=== PATIENT | female | born 1985 | race Caucasian/White ===

== ENCOUNTER 2022-09-06 08:11 | Outpatient (REF) | payer BC, SELFPAY ==
[2022-09-06 08:30] LABS: MANUAL DIFF FLAG NO
[2022-09-06 09:18] LABS: Basophils Absolute Auto 0.1 X10*3/uL (0.0-0.2); Basophils Percent Auto 0.8 % (0-2); Eosinophils Absolute Auto 0.3 X10*3/uL (0.0-0.4); Eosinophils Percent Auto 4.4 % (0-4); Hemoglobin 13.1 g/dl (12.0-16.0); Imm Gran Abs Auto 0.01 X10*3/uL (0.00-0.03); Imm Gran Pct Auto 0.2 % (0.0-0.4); Lymphocytes Absolute Auto 1.8 X10*3/uL (1.2-4.9); Lymphocytes Percent Auto 27.6 % (20-40); Mean Corpuscular HGB Conc 33.6 g/dl (31.0-35.0); Mean Corpuscular Hemoglobin 30.1 pg (27.0-33.0); Mean Corpuscular Volume 89.7 fL (80.0-98.0); Mean Platelet Volume 10.5 fL (9.4-12.3); Monocytes Absolute Auto 0.6 X10*3/uL (0.1-1.2); Monocytes Percent Auto 8.3 % (2-11); Neutrophils Absolute Auto 3.9 x10*3/uL (2.0-8.3); Neutrophils Percent Auto 58.7 % (45-73); Platelet Count 247 X10*3/uL (160-400); Red Blood Count 4.35 X10*6/uL (4.20-5.50); Red Cell Distribution Width 12.2 % (11.0-16.0); White Blood Count 6.6 X10*3/uL (4.8-10.8)
[2022-09-06 09:54] LABS: Alanine Aminotransferase 13 U/L (0-31); Albumin Level 4.1 g/dL (3.5-5.0); Alkaline Phosphatase 45 U/L (39-117); Anion Gap 14 (12-20); Aspartate Amino Transferase 14 U/L (5-31); Bilirubin Total 0.4 mg/dL (0.0-1.0); Blood Urea Nitrogen 12 mg/dL (9-16); Calcium 8.6 mg/dL (8.4-10.2); Carbon Dioxide 26 mmol/L (22-29); Chloride 103 mmol/L (96-108); Cholesterol 194 mg/dL; Estimated Glomerular Filt Rate > 60; Glucose Fasting 89 mg/dL (60-99); HDL Cholesterol 55 mg/dL; LDL Cholesterol Calculated 124 mg/dl; Potassium 4.1 mmol/L (3.3-5.1); Sodium 139 mmol/L (135-145); Total Protein 6.6 g/dL (6.5-8.0); Triglycerides 76 mg/dL
[2022-09-06 10:20] LABS: Thyroid Stimulating Hormone 8.58 uIU/mL (0.32-4.0); Vitamin D 25-OH Total 21.1 ng/mL (>30)
== END 2022-09-06 08:12 | disposition home or self-care (01) ==
LOC: HO.LAB 08:11
PROVIDERS: PCP Internal Medicine; Visit Provider Internal Medicine
DX: Z00.00 Encounter for general adult medical examination without abnormal findings (principal); F41.9 Anxiety disorder, unspecified; E78.00 Pure hypercholesterolemia, unspecified; E55.9 Vitamin D deficiency, unspecified
CPT/HCPCS: 36415; 80053; 80061; 82306; 84443; 85025

== ENCOUNTER 2022-11-18 10:00 | Outpatient (REF) | payer OTHER, SELFPAY ==
[2022-11-18 11:54] LABS: Free T4 (Free Thyroxine) 0.76 ng/dL (0.71-1.85); Thyroid Stimulating Hormone 5.35 uIU/mL (0.32-4.0)
== END 2022-11-18 10:01 | disposition home or self-care (01) ==
LOC: HO.LAB 10:00
PROVIDERS: PCP Internal Medicine; Visit Provider Internal Medicine
DX: E03.8 Other specified hypothyroidism (principal)
CPT/HCPCS: 36415; 84439; 84443

== ENCOUNTER 2024-04-06 08:56 | Outpatient (REF) | payer OTHER, SELFPAY ==
[2024-04-06 11:21] LABS: MANUAL DIFF FLAG NO
[2024-04-06 11:27] LABS: Basophils Absolute Auto 0.1 X10*3/uL (0.0-0.2); Basophils Percent Auto 0.9 % (0-2); Eosinophils Absolute Auto 0.3 X10*3/uL (0.0-0.4); Eosinophils Percent Auto 6.2 % (0-4); Hematocrit 40.2 % (37.0-47.0); Hemoglobin 13.5 g/dl (12.0-16.0); Imm Gran Abs Auto 0.02 X10*3/uL (0.00-0.03); Imm Gran Pct Auto 0.4 % (0.0-0.4); Lymphocytes Absolute Auto 1.7 X10*3/uL (1.2-4.9); Lymphocytes Percent Auto 32.3 % (20-40); Mean Corpuscular HGB Conc 33.6 g/dl (31.0-35.0); Mean Corpuscular Volume 89.3 fL (80.0-98.0); Mean Platelet Volume 10.6 fL (9.4-12.3); Monocytes Absolute Auto 0.5 X10*3/uL (0.1-1.2); Monocytes Percent Auto 9.4 % (2-11); Neutrophils Absolute Auto 2.7 x10*3/uL (2.0-8.3); Neutrophils Percent Auto 50.8 % (45-73); Platelet Count 247 X10*3/uL (160-400); Red Cell Distribution Width 13.1 % (11.0-16.0); White Blood Count 5.3 X10*3/uL (4.8-10.8)
[2024-04-06 12:22] LABS: Alanine Aminotransferase 14 U/L (0-31); Albumin Level 4.3 g/dL (3.5-5.0); Alkaline Phosphatase 42 U/L (39-117); Anion Gap 11 (12-20); Aspartate Amino Transferase 17 U/L (5-31); Bilirubin Total 0.4 mg/dL (0.0-1.0); Blood Urea Nitrogen 18 mg/dL (9-16); Calcium 9.3 mg/dL (8.4-10.2); Carbon Dioxide 28 mmol/L (22-29); Chloride 106 mmol/L (96-108); Cholesterol 203 mg/dL (<200); Estimated Glomerular Filt Rate > 60; Glucose Fasting 79 mg/dL (60-99); HDL Cholesterol 51 mg/dL (>40); LDL Cholesterol Calculated 137 mg/dL (<100); Potassium 3.7 mmol/L (3.3-5.1); Sodium 141 mmol/L (135-145); Total Protein 7.1 g/dL (6.5-8.0); Triglycerides 75 mg/dL (<150)
[2024-04-06 12:41] LABS: Free T4 (Free Thyroxine) 0.73 ng/dL (0.71-1.85); Thyroid Stimulating Hormone 5.28 uIU/mL (0.32-4.0); Vitamin D 25-OH Total 42.5 ng/mL (>30)
== END 2024-04-06 08:57 | disposition home or self-care (01) ==
LOC: HO.WFDLDS 08:56
PROVIDERS: Visit Provider Internal Medicine
DX: Z00.00 Encounter for general adult medical examination without abnormal findings (principal); E78.00 Pure hypercholesterolemia, unspecified; E55.9 Vitamin D deficiency, unspecified; E03.8 Other specified hypothyroidism
CPT/HCPCS: 36415; 80053; 80061; 82306; 84439; 84443; 85025

== ENCOUNTER 2024-06-01 08:53 | Outpatient (REF) | payer OTHER, SELFPAY ==
[2024-06-01 12:20] LABS: Free T4 (Free Thyroxine) 0.71 ng/dL (0.71-1.85); Thyroid Stimulating Hormone 5.03 uIU/mL (0.32-4.0)
[2024-06-04 17:18] LABS: Thyroglobulin Antibodies 10 IU/mL (< or = 1); Thyroid Peroxidase Antibodies >900 IU/mL (<9)
== END 2024-06-01 08:54 | disposition home or self-care (01) ==
LOC: HO.WFDLDS 08:53
PROVIDERS: Visit Provider Internal Medicine
DX: E03.8 Other specified hypothyroidism (principal); E78.00 Pure hypercholesterolemia, unspecified
CPT/HCPCS: 36415; 84439; 84443; 86376; 86800

== ENCOUNTER 2025-04-03 15:59 | Outpatient (AMB) | payer OTHER, SELFPAY ==
--- NOTE | 2025-04-03 16:00 | MHC.PC.OV ---
Vital Signs 04/03/25 16:04 Height 5 ft 4 in Weight 149 lb BMI 25.6 BP 109/65 Respiration 12 Pulse 66 Pulse Source Pulse Oximeter Temp 98.1 F Temp Source Temporal Artery Scan Pulse Oximetry (%) 97 Oxygen Delivery Method Room Air Intake Visit Reasons: 6 month follow up Injection Machine Operator Required: No Accompanied by: Self / Same As Patient Allergies Environmental Allergy (Mild, Uncoded 04/03/25 16:17) NOT APPLICABLE Medication List - Last Reconciled 04/03/25 by Bia Pino PA-C escitalopram oxalate 20 mg PO DAILY levothyroxine mcg PO Tobacco use date assessed: 04/03/25 Dental Screening Dental Screen Date: 04/03/25 Did you have a dental visit in the last 12 months?: Yes Did you have a dental problem in the last 6 months where you did not have access to dental care?: No Was dental information given to patient?: Patient has dentist HPI 6 month follow up HPI Details The patient is a 39-year-old female presenting for annual physical exam, to establish a new primary care provider due to Dr. 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 She denies experiencing any concerning symptoms such as dizziness, chest pain, shortness of breath, or significant weight changes. Regular annual mammograms have been conducted, with the last one occurring last year, and there is no family history of colon or breast cancer. Her previous cholesterol levels were slightly elevated, with total cholesterol at 203 mg/dL and LDL cholesterol at 137 mg/dL. She experiences palpitations associated with stress but does not have a significant cardiac history. The patient reports difficulties with concentration at work, and is concerned with possible attention deficit hyperactive disorder. Her son is also diagnosed with ADHD and is on medication. Her anxiety, treated with escitalopram, is well-controlled. 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 - Family Status: Has a son who is diagnosed with ADHD and is on medication. - No recent history of therapy or counseling, though a referral was provided for further assessment. - No specific details on exercise, nutrition, or weight management were discussed. [facility] Medical History (Updated 04/03/25 @ 16:49 by Bia Pino PA-C) Overweight with body mass index (BMI) of 26 to 26.9 in adult History of mammogram (~2023) Anxiety Establishing care with new doctor, encounter for Vitamin D deficiency Hyperlipidemia LDL goal <100 Pure hypercholesterolemia, unspecified History of thyroid cancer Annual physical exam Attention deficit Surgical History (Updated 04/03/25 @ 16:46 by Bia Pino PA-C) H/O thyroidectomy Previous section History of mandibular surgery History of ankle surgery H/O wisdom tooth extraction Family History Father BP (high blood pressure) Diabetes High cholesterol Mother Heart attack Social History Housing: House Alcohol intake: current Alcohol intake frequency: holidays/special occasions only Patient Tobacco Use Status: Former Tobacco user Tobacco use type: Cigarette service: No Current occupational status: employed Cognitive needs: No Hearing needs: No Vision needs: Yes (rx glasses) Questionnaire PHQ-9 Over the last 2 weeks, how often have you been bothered by any of the following problems? 1. Little interest or pleasure in doing things: not at all 2. Feeling down, depressed, or hopeless: not at all 3. Trouble falling or staying asleep, or sleeping too much: not at all 4. Feeling tired or having little energy: not at all 5. Poor appetite or overeating: not at all 6. Feeling bad about yourself - or that you are a failure or have let yourself or your family down: not at all 7. Trouble concentrating on things, such as reading the newspaper or watching television: not at all 8. Moving or speaking so slowly that other people could have noticed. Or the opposite - being so fidgety or restless that you have been moving around a lot more than usual: not at all 9. Thoughts that you would be better off or of hurting yourself in some way: not at all Total score: 0 Depression Screening Interpretation: Negative Depression Screening Done: Yes 75065 - PHQ-9 Billing: Yes Source: Developed by Drs. Chad Venegas, Tammi Villeda, Hussain Medina and colleagues, with an educational susan from [employer]. Thrive Questionnaire Date Thrive assessed: 04/03/25 I am a: Patient What is your living situation today?: I have a steady place to live Within the past 12 months, did the food you bought not last and you didn't have the money to get more?: Never true Within the past 12 months, did you worry whether your food would run out before you got money to buy more?: Never true Do you have trouble paying for medicines?: No Do you have trouble getting transportation to medical appointments?: No Do you have trouble paying your heating and electricity bill?: No Do you have trouble taking care of your child, family member or friend?: No Do you have trouble with day-to-day activities such as bathing, preparing meals, shopping, managing finances, etc.?: No Are you currently unemployed and looking for a job?: No Are you interested in more education?: No Please select the resources that you would like help with: None THRIVE Score: 0 AUDIT C Alcohol Use Questionnaire (AUDIT-C) 1. How often do you have a drink containing alcohol?: Monthly or less 2. How many drinks containing alcohol do you have on a typical day when you are drinking?: 1 or 2 3. How often do you have six or more drinks on one occasion?: Never Total Score: 1 Score Reviewed/Action Taken: No DEANDRE-7 AMB Questionnaire DEANDRE-7 Date DEANDRE - 7 assessed: 04/03/25 Feeling nervous, anxious, or on edge: 0 = Not at all Not being able to stop or control worryin = Not at all Worrying too much about different things: 0 = Not at all Trouble relaxin = Not at all Being so restless that it is hard to sit still: 0 = Not at all Becoming easily annoyed or irritable: 0 = Not at all Feeling afraid as if something awful might happen: 0 = Not at all Total DEANDRE-7 score (0-4 normal; 5-9 mild; 10-14 moderate; 15-21 severe): 0 Source: Developed by Drs. Chad Venegas, Tammi Villeda, Hussain Medina and colleagues, with an educational susan from [employer] DEANDRE-7 Assessment Billing DEANDRE-7 Assessment Tool: DEANDRE-7 Assessment 29616 Review of Systems Const Details: - General: Denies unintentional weight loss or gain. - Cardiovascular: Denies chest pain, palpitations reported with stress. - Respiratory: Denies shortness of breath. - Gastrointestinal: Denies abdominal pain, black or bloody stools. - Neurological: Denies dizziness; reports difficulty focusing at work. - Psychological: Reports anxiety is well-controlled with escitalopram. Physical exam (Primary Care) Vital Signs: Last Vital Signs Temp 98.1 F 04/03/25 16:04 Pulse 66 04/03/25 16:04 Resp 12 04/03/25 16:04 BP 109/65 04/03/25 16:04 Pulse Ox 97 04/03/25 16:04 Oxygen Delivery Method Room Air 04/03/25 16:04 Care Plan Goal for BP management: <140/90 at Goal BMI result Body Mass Index 25.6 BMI Assessment/Plan discussion: High BMI High, discussed plan: lifestyle, weight reduction, dietary, physical activity and alcohol moderation Tobacco/Smoking Status: Tobacco use Status Tobacco use date assessed 04/03/25 04/03/25 16:08 Patient Tobacco Use Status Former Tobacco user 04/03/25 16:08 Tobacco use type Cigarette 04/03/25 16:08 PHQ-9: PHQ-9 Score PHQ-9: Total score 0 04/03/25 16:08 Depression Screening Interpretation: Negative Thrive Assessment: Date of Thrive Assessment Date Thrive assessed 04/03/25 04/03/25 16:08 Const Other: Appearance: Alert. Oriented X3. No acute distress. Head: Normal external exam. Normocephalic. Atraumatic. Eyes: Pupils are equal, round, and reactive to light. Extraocular movements intact. Conjunctiva and sclera normal. Eyelids normal. Ears: External auditory canal normal. Tympanic membranes normal. Throat: Pharynx normal. Uvula midline. Moist mucous membranes. Neck: Normal inspection. Neck supple. Full range of motion. No adenopathy. Thyroid Normal. No meningeal signs. No neck mass noted. Cardiovascular: Normal heart rate and rhythm. Heart sound normal. Slight murmur noted. Pulses normal throughout. Respiratory: No respiratory distress. Painless inspiration. Breath sounds normal. No wheezes/rales/rhonchi noted. Chest nontender. No accessory muscle usage noted or decreased air movement noted. Abdomen: Soft and nontender. Bowel sounds normal in all 4 quadrants. No distention noted. No organomegaly noted. No visible injury noted. Back: No costovertebral angle tenderness. Full range of motion noted. Skin: Skin warm and dry. Normal skin color. Normal skin turgor. No rashes/lesions/lacerations noted. Extremities: No lower extremity edema. Extremities exhibit normal range of motion. Extremities nontender. Neuro: Oriented X 3. No motor deficit. No sensory deficit. Reflexes normal. Results Reviewed Results Reviewed: - Labs: Previous cholesterol level slightly elevated at 203 mg/dL, LDL at 137 mg/dL. - Thyroid: Levels slightly suppressed post-thyroidectomy, monitored by planishing press operator. Coding Level of Care Code New Pt Level 4 (90192) New Pt Prev Care 40-64y(12634) Diagnoses Annual physical exam Z00.00 Establishing care with new doctor, encounter for Z76.89 Hyperlipidemia LDL goal <100 E78.5 Attention deficit R41.840 Anxiety F41.9 History of thyroid cancer Z85.850 Overweight with body mass index (BMI) of 26 to 26.9 in adult E66.3; Z68.26 Additional Codes PHQ-9 - 88517 - PHQ-9 Billing: Yes ([id number]) DEANDRE-7 Assessment Billing - DEANDRE-7 Assessment Tool: DEANDRE-7 Assessment 97821 ([id number]) Assessment & Plan Assessment & Plan (1) Annual physical exam: Code(s): Z00.00 - Encounter for general adult medical examination without abnormal findings Category: Medical (2) Establishing care with new doctor, encounter for: Code(s): Z76.89 - Persons encountering health services in other specified circumstances Category: Medical (3) Hyperlipidemia LDL goal <100: Code(s): E78.5 - Hyperlipidemia, unspecified Category: Medical Plan: Previous cholesterol levels were slightly elevated. I recommended dietary and exercise modifications. The patient is to have lipid panel rechecked before the next annual visit. Condition is chronic and stable will continue to monitor. (4) Attention deficit: Code(s): R41.840 - Attention and concentration deficit Category: Medical Plan: The patient experiences difficulty focusing at work. I referred her to a specialist for further evaluation and potential treatment. (5) Anxiety: Code(s): F41.9 - Anxiety disorder, unspecified Category: Medical Plan: Anxiety is well-managed on escitalopram. The patient is advised to continue current medication and contact me if a refill is necessary. Condition is chronic and stable continue to monitor. (6) History of thyroid cancer: Comment: Status post thyroidectomy being followed by endocrinology Code(s): Z85.850 - Personal history of malignant neoplasm of thyroid Category: Medical Plan: Post-thyroidectomy monitoring is managed by the patient?s planishing press operator. Routine blood tests will be conducted for overall health maintenance. (7) Overweight with body mass index (BMI) of 26 to 26.9 in adult: Code(s): E66.3 - Overweight; Z68.26 - Body mass index [BMI] 26.0-26.9, adult Category: Medical Plan: Patient has improved diet and exercise regimen. Condition is chronic and stable continue to monitor. Plan Plan Patient was informed and verbally consented to the use of an ambient scribe for clinic note documentation during this visit. 1. Hyperlipidemia Previous cholesterol levels were slightly elevated. I recommended dietary and exercise modifications. The patient is to have lipid panel rechecked before the next annual visit. 2. Attention Deficit Hyperactivity Disorder Adhd The patient experiences difficulty focusing at work. I referred her to a specialist for further evaluation and potential treatment. 3. Generalized Anxiety Disorder Anxiety is well-managed on escitalopram. The patient is advised to continue current medication and contact me if a refill is necessary. 4. Follow-Up For Thyroid Cancer Post-thyroidectomy monitoring is managed by the patient?s planishing press operator. Routine blood tests will be conducted for overall health maintenance. I discussed with the patient the importance of managing her slightly elevated cholesterol levels through diet and exercise modifications before considering pharmacological intervention. We reviewed her history of ADHD, and I provided a referral for a specialist to assess her current difficulties with concentration and focus at work. The potential benefits and risks of ADHD medication will be evaluated by the specialist. I confirmed the continuation of escitalopram for her anxiety, which is currently well-managed. For her thyroid cancer follow-up, I acknowledged the ongoing monitoring by her planishing press operator and ensured that our routine blood work would complement her overall health maintenance. I emphasized the importance of regular follow-up and monitoring to address any changes in her health status. Orders: Orders C Reactive Protein Today Z00.00 - Encounter for general adult medical examination without abnormal findings Comprehensive [place]. Panel Fast Today Z00.00 - Encounter for general adult medical examination without abnormal findings Hemoglobin A1c Today Z00.00 - Encounter for general adult medical examination without abnormal findings Liver Panel Today Z00.00 - Encounter for general adult medical examination without abnormal findings Magnesium Today Z00.00 - Encounter for general adult medical examination without abnormal findings Vitamin B12 and Folate Today Z00.00 - Encounter for general adult medical examination without abnormal findings Vitamin D 25-OH Total Today Z00.00 - Encounter for general adult medical examination without abnormal findings Complete Blood Count Auto Diff Today Z00.00 - Encounter for general adult medical examination without abnormal findings Lipid Panel Today Z00.00 - Encounter for general adult medical examination without abnormal findings Referrals Psychiatry Outpatient Consultation Service R41.740 - Attention and concentration deficit Patient Instructions: - Follow a healthy diet and exercise regularly to help manage cholesterol levels. - Schedule and complete the required blood work before the next annual visit. - Expect a call from the ADHD specialist for further evaluation within the next two weeks. - Continue taking escitalopram as prescribed and reach out if a refill is needed. - Monitor for any new symptoms and report palpitations if they occur frequently. - Attend all follow-up appointments with your planishing press operator for thyroid management.
[2025-04-03 16:04] VITALS: BP 109/65; PULSE 66; RESP 12; TEMP 36.7; O2SAT 97; BMI 25.6
--- OUTSIDE RECORDS SUMMARY | 2025-04-03 16:14 | XMS_ITS | Continuity of Care Document ---
Author Organization [facility] [address] [place] [address] Phone [phone] Care Team Providers Care Applications Project Manager Name Role Phone Chad Murphy M.D. Care Team Information Recei neri [phone] Problems Active Problems Provider Date Anxiety Stevenson Cherry M.D. Onset: 0 07/19/2024 Hypercholesterolemia Stevenson Cherry M.D. Ons et: 07/19/2024 Vitamin D deficiency Stevenson Cherry M.D. Ons et: 07/19/2024 Hypothyroidism Stevenson Cherry M.D. Onset: 0 07/19/2024 Papillary thyroid carcinoma Mckay Tirado Onset: 12/27/2024 Social History Type Date Description Comments Sex Unknown Allergies and adverse reactions Description No Known Drug Allergies Medications Active Medications SIG Qnty Indications Ordering Provider Date Levothyroxine [id number] Tablets 1 tablet by mouth fasting every morning 11/08 on Tuesday 90tabs Stevenson Cherry M.D. 09/19/2024 Escitalopram [id number] Tablets Take 1 Tablet By Mouth Every Day Chad Murphy M.D. Vitamin [id number] (1999 Ut) Capsules Take 1 Capsule By Mouth Every Day Chad Murphy M.D. Calcitriol0.25mcg Capsules Unknown Vital Signs Date Vital Result Comment 12/27/2024 9:30am BP Systolic 90 mmHg BP Diastolic 60 mmHg Heart Rate 72 /min Height 64 inches 5'4 Weight 154.25 lb BMI (Body Mass Index) 26.5 kg/m2 Results Test Acquired Date Facility Test Result H/L Range N ote TSH Rfx on Abnormal to Free T4 03/19/2025 [facility] TSH RFX On Abnormal To Free T4 0.206 uIU/mL Low 0.450-4.500 T4,Free (Direct) 1.54 ng/dL 0.82-1.77 TSH Rfx on Abnormal to Free T4 12/25/2024 [facility] TSH Rfx on Abnormal to Free T4 0.530 uIU/mL 0.450-4.500 TSH RFX On Abnormal To Free T4 10/01/2024 [facility] TSH RFX On Abnormal To Free T4 <pending> hCG,Beta Subunit,Qual 09/18/2024 [facility] hCG,Beta Subunit,Qual Negative mIU/mL Negative <6 TSH+Free T4 09/14/2024 [facility] TSH 89.400 uIU/mL High 0.450-4.500 T4,Free(Direc t) 0.10 ng/dL Low 0.82-1.77 1 1 Verified by repeat analysis Medical Devices Description No Information Available Encounters Type Date Location Provider Dx Diagnosis Office Visit 12/27/2024 9:15a Main Office Stevenson Berger M.D. C73 Malignant neoplasm of thyroid gland Assessments Date Code Description Provider 12/27/2024 C73 Malignant neoplasm of thyroi d gland Stevenson Cherry M.D. Plan of Treatment Future Appointment(s):* 07/23/2025 1:00 pm - Stevenson Cherry M.D. at Main Office 09/14/2024 - Stevenson Cherry M.D.* C73 Papillary thyroid carcinoma Functional Status Description No Information Available Mental Status Description No Information Available Referrals Refer to Reason for Referral Status Appt Stevenson Valentine M.D. Created [address] [place] [address] Drive [address] [place] [address] [phone] Stevenson Cherry M.D. Created [address] [place] [address] Drive [address] [place] [address] [phone] Jeremiah Wilson MD THYROID NODULE Closed 4 (New Patient Referral Only) [phone] Stevenson Cherry M.D. Closed [address] [place] [address] [phone]
== END 2025-04-03 16:27 | disposition home or self-care (01) ==
PROVIDERS: PCP Internal Medicine; Visit Provider Physician Assistant Medical
DX: Z00.00 Encounter for general adult medical examination without abnormal findings (principal); R41.840 Attention and concentration deficit; Z76.89 Persons encountering health services in other specified circumstances; E78.5 Hyperlipidemia, unspecified; F41.9 Anxiety disorder, unspecified; Z85.850 Personal history of malignant neoplasm of thyroid; E66.3 Overweight; Z68.26 Body mass index [BMI] 26.0-26.9, adult

== ENCOUNTER → 2025-04-03 15:59 | Outpatient (BNVA) | payer OTHER, SELFPAY | PROVIDERS: PCP Internal Medicine; Visit Provider Physician Assistant Medical | DX: Z00.00 Encounter for general adult medical examination without abnormal findings (principal); Z23 Encounter for immunization; Z76.89 Persons encountering health services in other specified circumstances; E78.5 Hyperlipidemia, unspecified; F90.9 Attention-deficit hyperactivity disorder, unspecified type; F41.1 Generalized anxiety disorder; E66.3 Overweight; Z68.26 Body mass index [BMI] 26.0-26.9, adult; Z85.850 Personal history of malignant neoplasm of thyroid; Z79.899 Other long term (current) drug therapy; Z13.30 Encounter for screening examination for mental health and behavioral disorders, unspecified; Z13.31 Encounter for screening for depression | CPT/HCPCS: 96127 ==